=== PATIENT | male | born 1985 | race Caucasian/White ===

== ENCOUNTER 2016-07-26 20:36 | Emergency (ER) | payer OTHER ==
[~2016-07-26 20:36] MED LIST: NO MEDICATIONS
== END 2016-07-26 21:12 | disposition home or self-care (01) ==
LOC: SED 20:36
DX: T40.1X1A Poisoning by heroin, accidental (unintentional), initial encounter (principal); F17.210 Nicotine dependence, cigarettes, uncomplicated
CPT/HCPCS: 99283

== ENCOUNTER 2016-08-11 18:33 | Inpatient (IN) | payer OTHER ==
--- NOTE | ~2016-08-11 | HP ---
Unit #: [id number] #: [id number] Patient: RIYA ORTEGA [id number] [address] [place], [place] [address] [id number] MR#: [id number] NAME: RIYA ORTEGA. ROOM: Age: 30 Sex: M Admission Date: 08/11/2016 : 1985 Attending Physician: Jaiden Hernandez M.D. Primary Care Physician: Primary Care Physician No HISTORY AND PHYSICAL CHIEF COMPLAINT Opiate overdose. HISTORY OF PRESENT ILLNESS This 30-year-old homeless male with history of polysubstance abuse was admitted for an opiate overdose. Unfortunately, friends and family are no longer present. I am told by the ER physician, the patient was snorting a substance and became unresponsive. When EMS arrived, the patient was apneic. He was given 4 mg of nasal Narcan, then given 4 mg IV Narcan. When he presented to this emergency department, he was given another 4 mg of IV Narcan. He did develop nausea and vomiting. Labs are notable for a metabolic acidosis. The patient is also hypoglycemic and has required 3 amps of D50. PAST MEDICAL HISTORY Polysubstance abuse. ALLERGIES Unknown. HOME MEDICATIONS Unknown. SOCIAL HISTORY The patient is homeless. Apparently lives with friends. He smokes one pack per day of tobacco and abuses drugs. His urine toxicology screen is positive for amphetamines and opiates. FAMILY HISTORY Unknown. REVIEW OF SYSTEMS Impossible to obtain as patient is somnolent. PHYSICAL EXAMINATION VITAL SIGNS: Temperature 97.1, pulse 105, respirations 21, blood pressure 112/69, O2 saturation 95% on room air. GENERAL: Somnolent 30-year-old male who currently is in no acute distress. Did develop nausea and vomiting after Narcan. HEENT: Pupils are constricted. Pharynx is benign as far as I can tell. NECK: Supple without adenopathy or thyromegaly. CHEST: Clear on patient's supine exam. HEART: Normal S1, S2 without murmur. Unit #: [id number] #: [id number] Patient: RIYA ORTEGA ABDOMEN: Bowel sounds are diminished. Nontender. No hepatosplenomegaly or masses. EXTREMITIES: Without clubbing, cyanosis, or edema. Pedal pulses are present. No track tompkins that I can see on the arms, no splinter hemorrhages over the fingernail beds. SKIN: Clown tattoo over the right garcia and multiple other tattoos over the upper extremities. NEUROLOGIC: Somnolent. Does arouse to noxious stimuli and then dozes off to sleep. He moves all of his extremities. DIAGNOSTIC STUDIES LABORATORY: Hematocrit 42.6, white blood cell count 18.4, normal platelet count, 1 band noted. Coags normal. SMA-12 CO2 is 20, calcium 8.3, AST 240, ALT 135, alkaline phosphatase 94. Acetaminophen, salicylate and alcohol levels are all negligible. CPK is 126. His cardiac markers are negative. His urine toxicology screen is positive for amphetamines and opiates. His urinalysis 1+ protein, positive glucose with 10-25 wbc's but no bacteria, many squamous cells seen. IMAGING: Head CT no acute disease. Chest x-ray no acute disease. CARDIOVASCULAR: EKG shows a sinus tachycardia, rate 104. ASSESSMENT 1. Opiate overdose requiring a total of 12 mg of Narcan. I suspect patient may have used heroin and fentanyl. 2. Polysubstance abuse with urine toxicology screen positive for opiates and amphetamines. 3. Hypoglycemia secondary to decreased p.o. and nausea and vomiting. 4. Homeless. 5. Leukocytosis, likely reactive. 6. Metabolic acidosis, likely related to poor perfusion as the patient was found to be initially apneic. PLAN 1. IV fluids. 2. Supportive treatment. 3. Obtain HIV testing. 4. Social work consultation. 5. Obtain Accu-Cheks. 6. Repeat ABG after a liter of saline is administered. Dictated by Kayla Daugherty M.D. AML/cs TD: 08/11/2016 22:09 JOB #: [id number] Unit #: [id number] #: [id number] Patient: RIYA ORTEGA HISTORY AND PHYSICAL Page 1 of 1 X Kayla Daugherty MD HISTORY AND PHYSICAL
--- NOTE | ~2016-08-11 | EKG ---
PATIENT: RIYA ORTEGA UNIT #: [id number] Ventricular Rate: 104 BPM Atrial Rate: 104 BPM P-R Interval: 132 ms QRS Duration: 100 ms Q-T Interval: 376 ms QTC Calculation(Bezet): 494 ms P [place]: 70 degrees Calculated R [place]: 77 degrees Calculated T [place]: 47 degrees Diagnosis Line: Sinus tachycardia Diagnosis Line: Otherwise normal ECG Diagnosis Line: No previous ECGs available Diagnosis Line: Confirmed by MERRITT WELLS MD ([id number]) on 08/11/2016 Diagnosis Line: 11:43:23 PM INTERPRETING MD: PRISCILLA HERRERA
--- NOTE | ~2016-08-11 | DS ---
Unit #: [id number] #: [id number] Patient: RIYA ORTEGA [id number] [address] [address] [id number] MR#: [id number] NAME: RIYA ORTEGA. ROOM: 222 Age: 30 Sex: M Admission Date: 08/11/2016 : 1985 Discharge Date: 08/13/2016 Attending Physician: Marisol Bradford M.D. Primary Care Physician: No Primary Care Physician DISCHARGE SUMMARY PRINCIPAL DIAGNOSES 1. Acute hypoxic respiratory failure. 2. Unintentional opiate overdose. 3. Severe hypoglycemia. 4. Acute kidney injury, prerenal. 5. Polysubstance abuse including opiates and amphetamines. 6. Metabolic acidosis secondary to lactic acidosis. 7. Transaminitis: Hepatitis panel currently pending. 8. Reactive leukocytosis. CONSULTANTS None. PROCEDURES 1. CT of the head without contrast on August 11, 2016. With no evidence of infarct or hemorrhage. 2. Chest x-ray on August 11, 2016, which was normal. CLINICAL HISTORY/HOSPITAL COURSE Mr. Ortega is a 30-year-old male brought into the emergency department unresponsive and apneic after an opiate overdose. No history is provided and patient also does not provide any history. Please refer to H and P for further details. The patient was given a total of 12 mg of Narcan and awakened in the emergency department. Blood work revealed an elevated creatinine of 1.4 in addition to a metabolic acidosis and a leukocytosis of 18,000. CT scan of the head was unremarkable as was chest x-ray. The patient, however, was significantly hypoglycemic with a glucose of 41 and down to 38. He was subsequently admitted. In regards to patient's hypoglycemia, he was given 2 amps of D50 and maintained on D5 fluids. Today, he is awake, he is eating but glucose is still only 114. I have discontinued IV fluids and am awaiting an Accu-Chek later today given intake has been stable. Hemoglobin A1c was done and was normal at 5.2. Assuming sugars stay up, I think this is secondary to his overdose and should be resolved. The patient is refusing blood work throughout the hospitalization to followup his acute kidney injury, his transaminitis and his metabolic acidosis. Clinically, however, he appears significantly improved. I have tried to counseling specialist patient regarding substance abuse but he is really honestly unwilling to talk. I am going to have [facility] evaluate the patient for inpatient versus outpatient treatment and will follow their recommendations. If they feel outpatient treatment is most Unit #: [id number] #: [id number] Patient: RIYA ORTEGA appropriate, patient will be discharged home later today assuming Accu-Cheks are appropriate. DISCHARGE CONDITION Stable. DISCHARGE STATUS Discharge to home. DISCHARGE MEDICATIONS None. FOLLOWUP Patient can follow up with primary care and list of PCPs has been provided. Dictated by... Marisol Bradford M.D. JUAN CARLOS/gianna TD: 08/13/2016 10:56 JOB #: [id number] DISCHARGE SUMMARY Page 1 of 1 X Marisol Bradford MD X DISCHARGE SUMMARY
--- NOTE | ~2016-08-11 | CT71 ---
[facility] A Service of [facility] RADIOLOGY TEXT RESULTS PATIENT: RIYA ORTEGA LOCATION: [facility] : [birth year] UNIT #: [id number] AGE: [address]: Marisol Bradford MD SEX: M ORDER DR: [id number] [address] [id number] [facility]. [place], [place] [address] [id number] MR#: [id number] Acc #: [id number] NAME: RIYA ORTEGA. : 1985 SEX: M STUDY DATE/TIME: 08/11/2016 18:53 UNIT: CEDOF ROOM: 72951 STUDY DESCRIPTION: CT Head Wo Contrast Attending Physician: Kayla Daugherty M.D. Ordering Physician: Darin Buenrostro M.D. Primary Care Physician: Primary Care Physician No MEDICAL IMAGING REPORT This report is preliminary unless electronic signature is present EXAM CT head INDICATIONS Overdose on heroin. Confusion. Temporary encephalopathy. COMPARISON None available. TECHNIQUE Axial noncontrast images were obtained from the skull base to the vertex. This CT exam was performed with one or more of the following radiation dose reduction techniques: automatic exposure control, adjustment of mA and/or kV according to patient size, and iterative reconstruction. FINDINGS Ventricular size and configuration are normal. There is no evidence of acute infarct or hemorrhage. There are no extraaxial fluid collections. No mass lesion or mass effect is seen. There are no skull fractures. Mild mucosal thickening in the frontal sinuses and anterior ethmoid air cells. IMPRESSION Normal noncontrast head CT. Dictated by... Rafa Stallings M.D. THIS IS AN ELECTRONICALLY VERIFIED REPORT Rafa Stallings M.D. at 08/12/2016 3:04 PM [facility] A Service [facility] RADIOLOGY TEXT RESULTS PATIENT: RIYA ORTEGA LOCATION: [facility] : [birth year] UNIT #: [id number] AGE: [address]: Marisol Bradford MD SEX: M ORDER DR: TD: 08/11/2016 23:54 JOB #: [id number] MEDICAL IMAGING REPORT Page 1 of 1 COPY
--- NOTE | ~2016-08-11 | CR72 ---
[facility] A Service of [facility] RADIOLOGY TEXT RESULTS PATIENT: RIYA ORTEGA LOCATION: [facility] : [birth year] UNIT #: [id number] AGE: [address]: Marisol Bradford MD SEX: M ORDER DR: [id number] [facility] [address] [facility] [place], [place] [address] [id number] MR#: [id number] Acc #: [id number] NAME: RIYA ORTEGA. : 1985 SEX: M STUDY DATE/TIME: 08/11/2016 18:30 UNIT: CEDOF ROOM: [facility] STUDY DESCRIPTION: CR Chest Single View Portable Attending Physician: Kayla Daugherty M.D. Ordering Physician: Darin Buenrostro M.D. Primary Care Physician: Primary Care Physician No MEDICAL IMAGING REPORT This report is preliminary unless electronic signature is present EXAM Portable chest, 08/11/2016 HISTORY Weakness. Drug overdose today. COMPARISON None. TECHNIQUE Single AP view of the chest was obtained. FINDINGS A single AP portable view of the chest shows both lungs to be clear. The heart is normal in size. The mediastinal contour is normal. No significant bone abnormalities are seen. IMPRESSION Normal portable chest. Dictated by... Corby Macias M.D. THIS IS AN ELECTRONICALLY VERIFIED REPORT Corby Macias M.D. at 08/12/2016 8:03 AM MIGUEL/luis TD: 08/11/2016 23:44 JOB #: [id number] MEDICAL IMAGING REPORT [facility] A Service of [facility] RADIOLOGY TEXT RESULTS PATIENT: RIYA ORTEGA LOCATION: [facility] : [birth year] UNIT #: [id number] AGE: [address]: Marisol Bradford MD SEX: M ORDER DR: Page 1 of 1 COPY
[2016-08-11 18:31] LABS: ARTERIAL BLD GAS O2 SATURATION 88.8 % (90.0-100.0); ARTERIAL BLOOD GAS ART SITE RIGHT FEMORAL; ARTERIAL BLOOD GAS CARBOXY HB 3.2 %sat (0.0-9.0); ARTERIAL BLOOD GAS HCO3 22.1 mmol/L; ARTERIAL BLOOD GAS MET HB 0.6 %sat (0.0-2.0); ARTERIAL BLOOD GAS PCO2 46.1 mmHg (35.0-45.0); ARTERIAL BLOOD GAS PO2 64.3 mmHg (80.0-100); ARTERIAL BLOOD GAS pH 7.289 (7.350-7.450); ARTERIAL DRAW? YES
[2016-08-11 18:34] LABS: BASOPHIL# 0.1 X10e3 (0-0.3); BASOPHIL% 0.4 % (0-2.5); EOSINOPHIL% 0.2 % (0.0-7.0); HEMATOCRIT 42.6 % (38.0-50.0); HEMOGLOBIN 14.3 gm/dL (13.0-16.0); LYMPHOCYTE# 1.1 X10e3 (1.0-3.5); LYMPHOCYTE% 6.2 % (17.0-45.0); MEAN CELL VOLUME 87.2 FL (83-96); MEAN CORPUSCULAR HEMOGLOBIN 29.2 PG (28-34); MEAN CORPUSCULAR HGB CONC 33.5 g/dL (30-36); MEAN PLATELET VOLUME 8.3 FL (6.5-11.5); MONOCYTE# 0.9 X10e3 (0-1.0); MONOCYTE% 5.1 % (3.0-12.0); NEUTROPHIL# 16.2 X10e3 (1.5-7.1); NEUTROPHIL% 88.1 % (40-75); PLATELET COUNT 217 X10e3 (140-420); RED BLOOD COUNT 4.88 X10e (3.90-5.60); RED CELL DISTRIBUTION WIDTH 14.3 % (11.0-15.5); WHITE BLOOD COUNT 18.4 X10e3 (4.0-10.5)
[2016-08-11 18:35] LABS: DIFF IND YES
[2016-08-11 18:44] LABS: URINE SOURCE CLEAN CATCH
[2016-08-11 18:48] LABS: INR 1.1; PARTIAL THROMBOPLASTIN TIME 25.2 SECONDS (23.5-31.3); PROTHROMBIN TIME (PATIENT) 11.2 SECONDS (9.6-11.5)
[2016-08-11 18:50] LABS: URINE APPEARANCE CLEAR; URINE BILIRUBIN NEG (NEG); URINE BLOOD 1+ (NEG); URINE COLOR YELLOW; URINE GLUCOSE 100 MG/DL (NEG); URINE KETONE NEG (NEG); URINE LEUKOCYTE ESTERASE NEG (NEG); URINE NITRATE NEG (NEG); URINE PROTEIN 1+ (NEG); URINE SPECIFIC GRAVITY 1.009 (1.003-1.035)
[2016-08-11 18:53] LABS: CULTURE INDICATED? YES; URINE BACTERIA AUWI NEG (NEGATIVE); URINE SQUAMOUS EPITHELIAL CELL MANY /[HPF]
[2016-08-11 18:59] LABS: PLATELET ESTIMATE NORMAL (NORMAL)
[2016-08-11 19:00] LABS: AMPHETAMINE POS (NEG); BARBITURATES NEG (NEG); BENZODIAZEPINES NEG (NEG); COCAINE NEG (NEG); MARIJUANA NEG (NEG); OPIATES POS (NEG); TRICYCLIC ANTIDEPRESSANTS NEG (NEG); U METHADONE NEG (NEG)
[2016-08-11 19:03] LABS: ACETAMINOPHEN <10 ug/mL; ALCOHOL BLOOD <5 mg/dL (0); ALKALINE PHOSPHATASE 94 U/L (32-92); ALT (SGPT) 135 U/L (10-40); AST (SGOT) 240 U/L (10-42); BILIRUBIN, DIRECT 0.3 mg/dL (0.0-0.2); BILIRUBIN,INDIRECT 0.7 mg/dL (0.0-0.9); BLOOD UREA NITROGEN 15 mg/dL (9-23); BUN/CREATININE RATIO 10.71; CALCIUM SERUM 8.3 mg/dL (8.4-10.2); CARBON DIOXIDE 20 mmol/L (22-31); CHLORIDE 108 mmol/L (100-111); CK TOTAL 126 IU/L (36-174); CREATININE SERUM 1.4 mg/dL (0.6-1.4); GLOM FILT RATE Estimated 67.4 mL/min (>60); GLUCOSE FASTING 95 mg/dL (70-110); POTASSIUM 3.8 mmol/L (3.5-5.1); PROTEIN TOTAL SERUM 6.9 g/dL (6.0-8.3); SALICYLATE <4.0 mg/dL; SODIUM 141 mmol/L (135-145)
[2016-08-11 19:11] LABS: URINE GRANULAR CAST 0-2 /[HPF]
[2016-08-11 19:22] LABS: %MB 4.7 % (0.0-4.0); MB 5.9 ng/ml
[2016-08-11 19:29] LABS: POC - TROPONIN <0.05 ng/mL (<=0.05)
[2016-08-11 22:53] LABS: ARTERIAL BLD GAS O2 SATURATION 93.2 % (90.0-100.0); ARTERIAL BLOOD GAS CARBOXY HB 2.1 %sat (0.0-9.0); ARTERIAL BLOOD GAS HCO3 25.2 mmol/L; ARTERIAL BLOOD GAS MET HB 0.8 %sat (0.0-2.0); ARTERIAL BLOOD GAS PO2 81.6 mmHg (80.0-100); ARTERIAL BLOOD GAS pH 7.303 (7.350-7.450)
[2016-08-11 22:54] LABS: ARTERIAL BLOOD GAS PCO2 50.9 mmHg (35.0-45.0)
[2016-08-11 22:55] LABS: ARTERIAL BLOOD GAS ALLEN TEST NORMAL; ARTERIAL BLOOD GAS ART SITE RIGHT RADIAL; ARTERIAL DRAW? YES
[2016-08-13 11:04] LABS: HEMATOCRIT 39.4 % (38.0-50.0); MEAN CELL VOLUME 86.5 FL (83-96); MEAN CORPUSCULAR HEMOGLOBIN 28.5 PG (28-34); RED BLOOD COUNT 4.55 X10e (3.90-5.60); RED CELL DISTRIBUTION WIDTH 14.3 % (11.0-15.5)
[2016-08-13 11:37] LABS: BUN/CREATININE RATIO 13.33; CALCIUM SERUM 8.3 mg/dL (8.4-10.2); CREATININE SERUM 0.6 mg/dL (0.6-1.4); GLOM FILT RATE Estimated 135.9 mL/min (>60); MAGNESIUM 1.7 mg/dL (1.6-3.0); POTASSIUM 3.9 mmol/L (3.5-5.1)
== END 2016-08-14 11:41 | disposition home or self-care (01) | DRG 917 ==
LOC: CED 18:33 → CEDOF 22:10 → C2A 08-12 11:40
PROVIDERS: Emergency Medicine; Internal Medicine
DX: T40.601A Poisoning by unspecified narcotics, accidental (unintentional), initial encounter (principal); J96.01 Acute respiratory failure with hypoxia; E87.2 Acidosis; N17.9 Acute kidney failure, unspecified; F17.210 Nicotine dependence, cigarettes, uncomplicated; Z59.0 Homelessness; F15.10 Other stimulant abuse, uncomplicated; F11.10 Opioid abuse, uncomplicated; E16.2 Hypoglycemia, unspecified; R11.2 Nausea with vomiting, unspecified; D72.828 Other elevated white blood cell count; R74.0 Nonspecific elevation of levels of transaminase and lactic acid dehydrogenase [LDH]; Z71.51 Drug abuse counseling and surveillance of drug abuser
CPT/HCPCS: 36415; 36600; 51702; 70450; 71010; 80048; 80076; 80307; 81003; 82550; 82553; 82803; 82947; 83036; 83735; 84484; 85025; 85027; 85610; 85730; 87086; 87806; 93005; 96374; 96376; 99285; G0480; J2310